=== PATIENT | female | born 1955 ===

== ENCOUNTER → 2016-04-23 | Outpatient (REF) | payer OTHER ==
[2016-04-23 17:01] LABS: BASOPHILS % (AUTO) 0 % (0-2); EOSINOPHILS # (AUTO) 0.1 10^3uL; EOSINOPHILS % (AUTO) 2 % (0-4); LYMPHOCYTES # (AUTO) 1.3 X10^3; MEAN CORPUSCULAR HGB CONC 33.7 g/dL (31.0-37.0); MEAN PLATELET VOLUME 9.7 FL (6.0-9.5); MONOCYTES # (AUTO) 0.4 X10^3; MONOCYTES % (AUTO) 7 % (3-11); NEUTROPHILS # (AUTO) 4.5 X10^3; NEUTROPHILS % (AUTO) 71 % (51-67); PLATELET COUNT 320 10^3uL (150-450); WHITE BLOOD COUNT 6.35 10^3uL (4.0-11.0)
[2016-04-23 17:10] LABS: MEAN CORPUSCULAR HEMOGLOBIN 26.4 PG (26.0-34.0); MEAN CORPUSCULAR VOLUME 78 FL (80-100)
[2016-04-23 17:13] LABS: ANION GAP 16.3 MEQ/L (3-15); CALCULATED IONIZED CALCIUM 4.6 mg/dL (3.8-4.6); TOTAL PROTEIN 6.5 g/dL (6.4-8.5)
[2016-04-24 17:15] LABS: VITAMIN B 12 1140 pg/mL (213-816)
== END ==
LOC: LAB 16:52
PROVIDERS: ATTEND Family Medicine
DX: R29.6 Repeated falls (principal); M62.81 Muscle weakness (generalized); R41.3 Other amnesia; G43.009 Migraine without aura, not intractable, without status migrainosus; F31.12 Bipolar disorder, current episode manic without psychotic features, moderate; M79.7 Fibromyalgia
CPT/HCPCS: 80053; 80175; 82607; 82746; 84443; 85025; 86592